=== PATIENT | male | born 1995 | race African-American/Black ===

== ENCOUNTER 2018-10-05 04:27 | Emergency (ER) | payer OTHER, MEDICAID | END 2018-10-05 07:49 | disposition home or self-care (01) | LOC: E/R 04:27 | DX: S69.91XA Unspecified injury of right wrist, hand and finger(s), initial encounter (principal); F17.210 Nicotine dependence, cigarettes, uncomplicated; W22.01XA Walked into wall, initial encounter; Y92.9 Unspecified place or not applicable | CPT/HCPCS: 73110; 73110-RT; 99283-25 ==